=== PATIENT | male | born 1995 | race African-American/Black ===

== ENCOUNTER 2018-06-04 16:25 | Emergency (ER) | payer OTHER ==
[2018-06-04] MEDS: morphine 4 MG/ML VIAL IV (17:50)
[2018-06-04] MEDS: SOD CHLORIDE 0.9% 1,000 ML IV (17:50)
[2018-06-04] MEDS: ONDANSETRON 4 MG INJ IV (17:50)
[2018-06-04] MEDS: DEXAMETHASONE 10 MG/ML 1 ML INJ IV (18:00)
[2018-06-04] MEDS: CLINDAMYCIN 600 MG/D5W (PMX) 50 ML IVPB (18:00)
== END 2018-06-04 19:05 | disposition home or self-care (01) ==
LOC: FTE 16:25
DX: J36 Peritonsillar abscess (principal)
CPT/HCPCS: 96374; 96375; 99284-25